=== PATIENT | male | born 1990 | race Caucasian/White ===

== ENCOUNTER 2016-04-24 05:15 | Emergency (ER) | payer BC ==
[~2016-04-24] VITALS: Ht 177.8 cm; Wt 74.1 kg
[2016-04-24 06:58] LABS: EOSINOPHIL (%) 2.5 % (0-5); EOSINOPHIL COUNT 0.4 K/uL (0-0.3); HEMATOCRIT 44.9 % (38.0-50.0); IMMATURE GRANULOCYTE (%) 0.3 % (0.0-0.7); IMMATURE GRANULOCYTE COUNT 0.4 K/uL; LYMPHOCYTE COUNT 1.3 K/uL (1.0-2.8); MCH 28.9 PG (29.0-34.0); MCHC 35.2 G/DL (30.0-36.0); MCV 82.1 FL (86-99); MEAN PLAT.VOLUME 9.6 uM^3 (9.0-12.4); MONOCYTE (%) 10.8 % (3-12); MONOCYTE COUNT 1.6 K/uL (0-0.8); NEUTROPHIL (%) 77.6 % (45-76); NEUTROPHIL COUNT 11.4 K/uL (1.8-6.4); PLATELET COUNT 215 K/uL (156-360); RBC DIS.WIDTH-CV 12.7 % (11.8-14.6); RBC DIS.WIDTH-SD 38.1 % (39-53); RED BLOOD COUNT 5.47 M/uL (4.00-5.50); WHITE BLOOD COUNT 14.7 K/uL (4.1-10.2)
[2016-04-24] MEDS ORDERED: ROBITUSSIN AC,T10 ML PO (07:23)
[2016-04-24 08:58] VITALS: BP 133/83
== END 2016-04-24 08:58 | disposition home or self-care (01) ==
LOC: EME 05:15
PROVIDERS: Emergency Medicine
DX: K12.1 Other forms of stomatitis (principal)
CPT/HCPCS: 85025; 87651 90; 99281; 99284; J7030; J7512

== ENCOUNTER 2016-04-27 01:54 | Emergency (ER) | payer BC ==
[~2016-04-27] VITALS: Ht 177.8 cm; Wt 71.8 kg
[~2016-04-27 01:54] MED LIST: ROBITUSSIN AC,T10 ML PO
[2016-04-27 04:53] LABS: MCH 28.5 PG (29.0-34.0); MCHC 34.9 G/DL (30.0-36.0); MCV 81.6 FL (86-99); MEAN PLAT.VOLUME 9.1 uM^3 (9.0-12.4); PLATELET COUNT 202 K/uL (156-360); RBC DIS.WIDTH-CV 12.8 % (11.8-14.6); RBC DIS.WIDTH-SD 38.2 % (39-53); RED BLOOD COUNT 5.76 M/uL (4.00-5.50); WHITE BLOOD COUNT 9.8 K/uL (4.1-10.2)
[2016-04-27] MEDS ORDERED: ACYCLOVIR400 MG PO (04:55)
[2016-04-27] MEDS ORDERED: HYCODAN SYRUP480 ML PO (04:55)
[2016-04-27] MEDS ORDERED: MYCOSTATIN 100,60 ML PO (04:55)
[2016-04-27 04:59] LABS: CHLORIDE 103 mEq/L (99-109); POTASSIUM 4.2 mEq/L (3.7-5.4)
[2016-04-27 05:00] LABS: SODIUM 141 mEq/L (136-147)
[2016-04-27 05:01] LABS: GLUCOSE 108 mg/dL (70-99)
[2016-04-27 05:03] LABS: ANION GAP 10 MEQ/L (2-14)
[2016-04-27 05:05] LABS: GFR ESTIMATE (CALCULATED) > 59 mL/min/
[2016-04-27 05:06] LABS: UREA NITROGEN (BUN) 12 mg/dL (9-23)
[2016-04-27] MEDS ORDERED: PERCOCET 5/31 TABLET PO (05:32)
[2016-04-27 06:12] VITALS: BP 157/101
== END 2016-04-27 06:13 | disposition home or self-care (01) ==
LOC: EME 01:54
PROVIDERS: Emergency Medicine
DX: L51.9 Erythema multiforme, unspecified (principal); B08.5 Enteroviral vesicular pharyngitis; E86.0 Dehydration; Z88.2 Allergy status to sulfonamides
CPT/HCPCS: 80048; 85027; 87651 90; 99281; 99285; J7030